=== PATIENT | female | born 1990 | race Caucasian/White ===

== ENCOUNTER 2018-07-11 17:29 | Emergency (ER) | payer BC, SELFPAY ==
[2018-07-11] MEDS ORDERED: Ketorolac Tromethamine 30 MG/ML VIAL ONE (18:40)
[2018-07-11] MEDS ORDERED: diphenhydrAMINE 50 MG/ML VIAL ONE (18:40)
[2018-07-11] MEDS ORDERED: Metoclopramide HCl 10 MG/2 ML VIAL ONE (18:40)
--- NOTE | 2018-07-11 20:28 | CT ---
CT BRAIN WITHOUT CONTRAST: 07/11/18 HISTORY: Migraine headaches. FINDINGS: No evidence of infarct, hemorrhage, midline shift or abnormal extra-axial fluid collections are seen. The ventricular size is normal and the basilar cisterns patent. The bony calvarium is intact. There is mucosa disease in the paranasal sinuses. IMPRESSION: 1. No CT evidence of acute intracranial process. 2. Paranasal sinus disease. POS: [facility]
[2018-07-11 21:58] LABS: Pregnancy Test - Urine (BHCG) Negative (Negative); Pregu Control Background? CLEAR/WHITE (CLR/WHITE); Pregu Control Bar Appear? YES (CONTROL BAR)
[2018-07-11 22:00] LABS: Bilirubin Negative (Negative); Blood, Urine Negative (Negative); Clarity CLEAR (Clear); Glucose, Urine (Dipstick) Negative (Negative); Leukocyte Negative (Negative); Nitrite Negative (Negative); Protein, Urine (Dipstick) Negative (Neg-Trace); Specific Gravity, Urine 1.005 (1.002-1.036); Urobilinogen 0.2 mg/dL (0.2-1.0)
[2018-07-11 22:05] LABS: Specific Gravity 1.005 (1.002-1.036)
== END 2018-07-11 22:33 | disposition home or self-care (01) ==
LOC: ERS 17:29
DX: G43.909 Migraine, unspecified, not intractable, without status migrainosus (principal)
CPT/HCPCS: 51701; 70450; 81003; 81025; 96365; 96375; A4353; J1200; J1885; J2765

== ENCOUNTER 2018-07-12 17:59 | Inpatient (IN) | payer BC, SELFPAY ==
[~2018-07-12 17:59] MED LIST: ISOVUE-370 76%-LOCM 1 ML ONE
[2018-07-12 18:32] LABS: #Basophils 0.1 thou/uL (0.0-0.2); #Lymphocytes 2.4 thou/uL (1.20-3.40); #Monocytes 0.5 thou/uL (0.11-0.59); #Neutrophils 6.4 thou/uL (1.40-6.50); %Basophils 0.8 % (0.0-1.0); %Eosinophils 0.2 % (0.0-10.0); %Lymphocytes 25.5 % (21.0-51.0); %Monocytes 5.1 % (0.0-10.0); %Neutrophils 68.4 % (42.0-75.0); Mean Corpuscular HGB CONC 34.4 g/dL (32.0-36.0); Mean Corpuscular Hemoglobin 31.2 pg (27.0-31.0); Mean Corpuscular Volume 90.7 fL (78.0-98.0); Mean Platelet Volume 6.5 fL (7.4-10.4); Platelet Count 350 thou/uL (130-400); RBC Distribution Width 11.3 % (11.5-14.5); White Blood Cell (WBC) Count 9.4 thou/uL (4.8-10.8)
[2018-07-12 18:54] LABS: Acetaminophen Less than 6.0 mcg/mL (10.0-30.0); Alcohol Less than 10 mg/dL (Less than 10); Salicylate Less than 8.0 mg/dL (15.0-30.0)
[2018-07-12 18:55] LABS: ALT (SGPT) 20 U/L (8-55); AST (SGOT) 17 U/L (5-34); Albumin 4.3 g/dL (3.5-5.0); Alkaline Phosphatase 74 U/L (40-150); Anion Gap 18 mmol/L (10-20); BUN (Urea Nitrogen) 11 mg/dL (7.0-18.7); Bilirubin, Total 0.5 mg/dL (0.2-1.2); Calc. Creatinine Clearance 0 mL/min (70-130); Calcium 9.5 mg/dL (7.8-10.44); Carbon Dioxide 17 mmol/L (22-29); Chloride 105 mmol/L (98-107); Estimated GFR-MDRD Greater than 90; Glucose 84 mg/dL (70-105); Potassium 3.6 mmol/L (3.5-5.1); Protein, Total 7.3 g/dL (6.0-8.3); Sodium 136 mmol/L (136-145)
[2018-07-12 19:17] LABS: CKMB 1.7 ng/mL (0-6.6)
[2018-07-12 21:34] LABS: Amphetamine Not Detected (NotDetected); Barbiturates Screen Not Detected (NotDetected); Benzodiazepine Screen Not Detected (NotDetected); Cocaine Metabolite Screen Not Detected (NotDetected); Medtox Control Line Valid? VALID (VALID); Medtox Reader # READER 1; Methadone Not Detected (NotDetected); Methamphetamine Not Detected (NotDetected); Opiate Screen Not Detected (NotDetected); Oxycodone Screen Not Detected (NotDetected); Phencyclidine (PCP) Not Detected (NotDetected); THC/Cannabinoid Screen Not Detected (NotDetected); Tricyclic Screen Not Detected (NotDetected)
[2018-07-12 22:08] LABS: Troponin I 0.146 ng/mL (< 0.028)
[2018-07-12] MEDS ORDERED: Metoclopramide HCl 10 MG/2 ML VIAL ONE (23:06)
[2018-07-12] MEDS ORDERED: Dicyclomine 20 MG TAB ONE (23:06)
--- NOTE | 2018-07-12 23:46 | CT ---
CT ABDOMEN AND PELVIS WITH IV CONTRAST 07/12/18 HISTORY: Trauma, left lower quadrant pain, possible fall due to seizure with associated nausea and vomiting an d bowel incontinence. FINDINGS: The lung bases are clear. The liver, spleen, pancreas, adrenal glands and kidneys are intact. Gallbla dder and urinary bladder also appear intact. Uterus and ovaries are present. An IUD is noted. No free air or free fluid is seen in the abdomen or pelvis. A retroaortic left renal vein is noted. T here are bilateral tiny nonobstructing renal calculi. No fracture or subluxation seen in the visualiz ed portion of the thoracolumbar spine. No acute osseous abnormalities are identified. IMPRESSION: 1. No evidence of solid organ injury. 2. Nonobstructing bilateral renal calculi. 3. IUD. POS: [facility]
[2018-07-12] MEDS ORDERED: Aspirin 325 MG TAB ONE (23:53)
[2018-07-13 01:40] LABS: Troponin I 0.155 ng/mL (< 0.028)
[2018-07-13 02:46] VITALS: BMI 33.1
[2018-07-13 07:36] LABS: Troponin I 0.237 ng/mL (< 0.028)
[2018-07-13] MEDS ORDERED: ALPRAZolam 0.25 MG TAB PO PRN (10:42)
[2018-07-13] MEDS: Acetaminophen/Codeine 30-300mg Tablet PO PRN (12:51)
[2018-07-13 19:53] LABS: Bilirubin Negative (Negative); Blood, Urine Negative (Negative); Clarity CLOUDY (Clear); Glucose, Urine (Dipstick) Negative (Negative); Leukocyte Trace (Negative); Nitrite Negative (Negative); Protein, Urine (Dipstick) Negative (Neg-Trace); Specific Gravity, Urine 1.014 (1.002-1.036)
[2018-07-13 19:54] LABS: Bacteria/HPF None Seen HPF (None Seen); Hyaline Casts/LPF 0-3 HYALINE CAST LPF (0-3 Hyaline); Pathc Cast-AUWi Flag 0.95 (0-2.49); RBC/HPF 0-3 HPF (0-3)
[2018-07-13 19:56] LABS: Urine Culture Reflex No No
--- NOTE | 2018-07-13 20:21 | CON ---
DATE OF CONSULTATION: 07/13/2018 REASON FOR CONSULTATION: Mildly elevated troponins. HISTORY OF PRESENT ILLNESS: Ms. Vines is a 27-year-old white female, who comes to the hospital for altered mentation. She was brought in by her , who states that for the last 4 or 5 days, she was not acting right, pacing restless, might have had a seizure as when she was found to be thought to be sleepy and when she woke up, she had lost use of her bowels and bladder. She was brought in for all these things and in the workup, troponin was done and it was in the indeterminate range, so Cardiology is being consulted. Ms. Vines states that she has episodes of chest pain on and off. She states that the pain can last anywhere from 5 minutes to 2 to 3 days at a time. She currently denies any chest pain, tightness, or pressure. PAST MEDICAL HISTORY: Migraine headaches. PAST SURGICAL HISTORY: 1. Mass on vocal cords removed. 2. Sinus surgery, long time ago. FAMILY HISTORY: AV malformation in mother. 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 OUTPATIENT MEDICATIONS: 1. Lyrica. 2. Propranolol 120 mg a day. 3. Tylenol with codeine. 4. Tizanidine. 5. Cymbalta. ALLERGIES: AMOXICILLIN. SOCIAL HISTORY: No alcohol, tobacco, or drugs. REVIEW OF SYSTEMS: A 12-point review of systems was done and was found to be negative unless stated in the history present illness . She has several different complaints. She has nausea and vomiting, fatigue, intermittent right arm numbness, headaches from her migraines most likely. PHYSICAL EXAMINATION: VITAL SIGNS: Temperature 98.8, pulse 69, respiratory rate 16, saturation 96% on room air, and blood pressure 118/73. GENERAL: Alert, awake, and oriented x3, in no distress. HEENT: Normocephalic and atraumatic. NECK: Supple. No JVD. LUNGS: Clear to auscultation. CARDIOVASCULAR: S1 and S2. No S3 or S4. No murmurs. ABDOMEN: Soft. Positive bowel sounds. EXTREMITIES: No edema. SKIN: Warm and dry. LABORATORY DATA: Laboratory work was reviewed. CBC is unremarkable. Coags, D-dimer was unremarkable. Chemistries were normal except for carbon dioxide of 17. Troponin was 0.14, 0.15, 0.23 with a CK-MB of 1.7 and . Prolactin was normal. Urine drug screen was unremarkable. CT of the abdomen and pelvis showed no evidence of solid organ injury, nonobstructive bilateral renal calculi, or intrauterine device. ASSESSMENT: 1. Indeterminate troponins. 2. Atypical chest pain. PLAN: 1. Her initial presentation sounds more like a neurological disorder. We will continue to trend troponins. If they go to the positive range, we may recommend a heart catheterization, otherwise we will just get an echocardiogram. They remain in the indeterminate range. We will get an echocardiogram and if this is unremarkable, we will plan on following up as an outpatient. 2. Further recommendations per results of echo and further troponin titration. Job ID: [id number]
[2018-07-13 20:55] LABS: CKMB 1.7 ng/mL (0-6.6)
[2018-07-13] MEDS ORDERED: Communication Order-Pharmacy FS SCH (21:15)
[2018-07-13] MEDS: DULoxetine 60 MG CAP PO SCH (21:44)
[2018-07-13] MEDS: Sodium Chloride 0.9% 1,000 ML IV SCH (21:55)
--- NOTE | 2018-07-13 22:45 | HP ---
CHIEF COMPLAINT: Change in mental status. HISTORY OF PRESENT ILLNESS: The patient is a 27-year-old female with a history of migraine headaches and also history of anxiety and depression, who presented to the hospital with a change in mental status. Upon questioning the patient, the patient states that she has a history of migraines and her normal migraines consist of left temporal pain that last about maybe a day and the patient has been taking propranolol for her headaches. She has been diagnosed with migraines as a child. The patient states that sometimes with her migraine headache she does get right-sided paresthesias. However, the patient feels that for the past 6 days, her headaches have been on her right behind her eye. She describes the pain as sharp pain. She states that nothing that she has been taking has been helping her with the pain. She did come into the ER a few days in a different ER and was treated for migraine cocktail and was discharged home. The patient also states that for the past couple of days she has been feeling very disassociated with herself and her family. The patient stated that her one day commented that she was walking around without any clothes and at that time patient was unaware that she had no clothes on. The patient feels that her behavior was a little bit bizarre. She denies any chills, fevers, pain, or stiffness. The patient states that she just feels disassociated with her and feels very strange within her. The patient also stated that about maybe a month ago, she presented to the another ER with complaints of pleuritic pain at this time. She was told that she was given some naproxen and was told that this was probably inflammatory. At that time, her EKG was normal. PAST MEDICAL HISTORY: She has a history of migraines. She has a history of anxiety and depression. PAST SURGICAL HISTORY: She does have some sinus surgery when she was a child. FAMILY HISTORY: Mother has a history of mental disease, which has never been treated and AVMs. Father has a history of heart disease. However, she is unable to tell me what type and how old that he was diagnosed with heart disease. SOCIAL HISTORY: She denies any alcohol use. She does smoke. Denies any drug use and lives at home with her family and she is a full code. ALLERGIES: SHE IS ALLERGIC TO AMOXICILLIN. CURRENT MEDICATIONS: She is on, 1. Lyrica 225 mg daily. 2. Propranolol one p.o. daily. 3. Tylenol 3 with codeine 1 p.o. q.4 hours p.r.n. 4. Tizanidine one q.8 hours p.r.n. 5. Cymbalta 60 mg one p.o. daily. REVIEW OF SYSTEMS: All negative except for the ones mentioned above in the HPI. PHYSICAL EXAMINATION: VITAL SIGNS: Temperature 98.8, heart rate 61, respiratory rate 16, oxygen saturation 100% on room air, blood pressure 121/81. GENERAL: She is awake, alert, and oriented x3. Does not appear in any distress. CV: S1, S2 present. No murmurs, rubs, or gallops. HEENT: Normocephalic, atraumatic. No lymphadenopathy noted. LUNGS: Clear to auscultation. No rhonchi or wheezes noted. ABDOMEN: Soft and nontender. Bowel sounds are present x2. NEUROVASCULAR: No focal deficits noted. SKIN: No cuts, lesions, or bruises noted. PSYCHIATRIC: The patient has a very flat affect. She is awake, alert, and oriented x3. Appears a little teary at times. When I entered the room, the patient did have the mother and aunt; however, she asked her mother to leave the room before I started asking her questions. She stated that she did not want her mother knowing what was going on with her. LABORATORY DATA: As of the following; sodium of 136, potassium of 3.6, BUN of 11, creatinine of 0.72. LFTs are normal. Troponins x3 were mildly elevated. EKG, no acute abnormalities. Prolactin was 7.83. TSH is pending. D-dimer was less than 0.27. Toxicology, she was negative for any drug use or alcohol use. She also had a CT of abdomen and pelvis which indicated no evidence of solid organ injury. She has an IUD, nonobstructing bilateral renal calculi. She also had a pelvic exam done in the ER, which some of the results of her cervix, there was negative for Trichomonas, Gardnerella, or Cece. ASSESSMENT AND PLAN: The patient is a 27-year-old female who presents to the hospital with these vague symptoms and also change of mental status. 1. Encephalopathy could be secondary to metabolic versus worsening migraine headaches versus psychiatric. Upon getting history from the patient, it seemed more psychiatric given her nature. However, I will get Neurology to evaluate this patient. I am holding off on the CAT scan since I want Neurology to evaluate her and give the recommendation. I will check a TSH on this lady. Her UDS was negative. Also, check a urine to rule out any infectious etiology. 2. Elevated troponins. EKG was negative. I will consult Cardiology. She is pretty young to have elevated troponins. Her D-dimer was negative. 3. History of migraines. I will put in a p.r.n. migraine cocktail. 4. Anxiety, depression. We will continue her home medications. 5. Deep venous thrombosis prophylaxis. We will put the patient on SCDs. Job ID: [id number]
--- NOTE | 2018-07-13 23:44 | CON ---
DATE OF CONSULTATION: 07/13/2018 CONSULTING PHYSICIAN: Hospitalist Services. IMPRESSION: 1. Chronic migraines. 2. Possible nocturnal seizure. PLAN: 1. Outpatient MRI of the brain and EEG. 2. Office followup for management of her migraines. HISTORY OF PRESENT ILLNESS: Ms. Vines is a 27-year-old white female with a long history of migraine headaches. She started having a migraine 6 days ago. It wax and wane in severity and she finally gave up and came to the hospital. She was treated with the migraine protocol and had complete resolution of the headache. She went home and was sleeping and when she awoke, found that she had bit her tongue and wet with bed, her muscles were a bit sore. She had a CT scan of the brain done, which was unremarkable. All of her lab work was in normal range. She has never had a seizure before. Her migraines occur about once a month. She usually can treat them with Excedrin or Maxalt. PAST HISTORY: Otherwise negative. ALLERGIES: AMOXICILLIN. MEDICATIONS: None. SOCIAL HISTORY: No illicit drug use or tobacco use. FAMILY HISTORY: Noncontributory. REVIEW OF SYSTEMS: Ten-systems review of systems otherwise negative. PHYSICAL EXAMINATION: GENERAL: She is a well-nourished young woman, in no acute distress. VITAL SIGNS: Stable. She is afebrile. HEENT: Pupils equal and reactive. Conjunctivae clear. Oropharynx clear. There is some minor damage to the tip of her tongue. NECK: Supple. EXTREMITIES: No cyanosis, clubbing, or edema. NEUROLOGIC: She is alert and appropriate. Her speech is fluent and clear. Exam is nonfocal. DIAGNOSTIC DATA: Imaging and lab work were reviewed. SUMMARY: This is a young woman with a possible first nocturnal seizure along with migraines. She seems clinically stable to be worked up as an outpatient. I would not start her on anticonvulsants at this point in time. Job ID: [id number]
[2018-07-14 05:39] LABS: #Basophils 0.1 thou/uL (0.0-0.2); #Eosinphils 0.1 thou/uL (0.0-0.7); #Lymphocytes 2.2 thou/uL (1.20-3.40); #Monocytes 0.7 thou/uL (0.11-0.59); #Neutrophils 5.7 thou/uL (1.40-6.50); %Basophils 0.7 % (0.0-1.0); %Lymphocytes 25.3 % (21.0-51.0); %Monocytes 7.6 % (0.0-10.0); %Neutrophils 65.3 % (42.0-75.0); Mean Corpuscular HGB CONC 34.4 g/dL (32.0-36.0); Mean Corpuscular Hemoglobin 31.5 pg (27.0-31.0); Mean Corpuscular Volume 91.7 fL (78.0-98.0); Mean Platelet Volume 7.1 fL (7.4-10.4); Platelet Count 316 thou/uL (130-400); RBC Distribution Width 11.3 % (11.5-14.5); Red Blood Cell (RBC) Count 4.45 mill/uL (4.20-5.40); White Blood Cell (WBC) Count 8.8 thou/uL (4.8-10.8)
[2018-07-14 05:49] LABS: Anion Gap 12 mmol/L (10-20); BUN (Urea Nitrogen) 9 mg/dL (7.0-18.7); Calc. Creatinine Clearance 166 mL/min (70-130); Calcium 8.9 mg/dL (7.8-10.44); Carbon Dioxide 22 mmol/L (22-29); Chloride 106 mmol/L (98-107); Estimated GFR-MDRD Greater than 90; Glucose 87 mg/dL (70-105); Potassium 3.7 mmol/L (3.5-5.1); Sodium 136 mmol/L (136-145)
[2018-07-14] MEDS: Pregabalin 75 MG CAP PO SCH (06:09)
[2018-07-14] MEDS: DULoxetine 60 MG CAP PO SCH ×2 (06:10→20:28)
[2018-07-14] MEDS: Acetaminophen/Codeine 30-300mg Tablet PO PRN ×2 (06:10→20:29)
[2018-07-14] MEDS: Aspirin 325 mg Enteric Coated Tablet PO SCH (09:57)
[2018-07-14] MEDS: Sodium Chloride 0.9% 1,000 ML IV SCH ×2 (10:02→20:30)
[2018-07-14] MEDS ORDERED: Iopamidol 370 76% 100 ML VIAL ONE (10:27)
[2018-07-14 11:54] LABS: Hemoglobin A1c 4.3 % (4.0-6.0)
[2018-07-14 12:12] LABS: Cardiac Risk 5.1 (Less than 4.5)
[2018-07-14 12:27] LABS: Troponin I 0.553 ng/mL (< 0.028)
[2018-07-14] MEDS ORDERED: Fentanyl 100 MCG/2 ML VIAL ONE (13:11)
[2018-07-14] MEDS ORDERED: Midazolam HCl 2 mg/2 ml Vial ONE (13:11)
[2018-07-14] MEDS ORDERED: Nitroglycerin 4.9 GM Bottle ONE (13:24)
[2018-07-14] MEDS ORDERED: Lorazepam 2 MG/ML VIAL SLOW IVP SCH (15:15)
[2018-07-14 15:49] LABS: Troponin I 0.597 ng/mL (< 0.028)
--- NOTE | 2018-07-14 16:30 | PDOC.PN ---
- Subjective Encounter Start Date: 07/14/18 Encounter Start Time: 10:30 Subjective: pt up in bed no complains - Objective Resuscitation Status - Order Detail: 07/13/18 10:41 Resuscitation Status Routine Resuscitation Status: FULL: Full Resuscitation Vital Signs & Weight: Vital Signs (12 hours) Temp Pulse Resp BP Pulse Ox 07/14/18 16:00 98 F 60 16 138/79 100 07/14/18 11:51 97.8 F 61 16 128/79 100 07/14/18 10:00 99 07/14/18 07:45 97.8 F 83 16 124/63 99 Weight Weight 181 lb 4.8 oz I&O: 07/13/18 07/14/18 07/15/18 06:59 06:59 06:59 Intake Total 240 1240 Balance 240 1240 Result Diagrams: 07/14/18 04:54 07/14/18 04:54 Phys Exam - Physical Examination Respiratory: no wheezing, no rales, no rhonchi, wheezing present, clear to auscultation bilateral Cardiovascular: RRR, no significant murmur, no rub, gallop, irregular Gastrointestinal: soft, non-tender, no distention, positive bowel sounds Musculoskeletal: no edema, pulses present, edema present Dx/Plan (1) Encephalopathy Code(s): G93.40 - ENCEPHALOPATHY, UNSPECIFIED Status: Acute (2) Elevated troponin Code(s): R74.8 - ABNORMAL LEVELS OF OTHER SERUM ENZYMES Status: Acute (3) Migraine Code(s): G43.909 - MIGRAINE, UNSP, NOT INTRACTABLE, WITHOUT STATUS MIGRAINOSUS Status: Acute - Plan pt's ddimer was negative, pt's trops continue to worsen -: cardiology consulted, npo. echo ordered. no ekg changes -: pt currently has no headache. will get MRI brain. if negative may consider -: getting Mental health to see pt. * . Review of Systems - Review of Systems Respiratory: negative: Cough, Dry, Shortness of Breath, Hemoptysis, SOB with Excertion, Pleuritic Pain, Sputum, Wheezing Cardiovascular: negative: chest pain, palpitations, orthopnea, paroxysmal nocturnal dyspnea, edema, light headedness, other Gastrointestinal: negative: Nausea, Vomiting, Abdominal Pain, Diarrhea, Constipation, Melena, Hematochezia, Other - Medications/Allergies Allergies/Adverse Reactions: Allergies Allergy/AdvReac Type Severity Reaction Status Date / Time amoxicillin Allergy Verified 07/13/18 02:32 Medications: Current Medications Acetaminophen/Codeine Phosphate (Tylenol #3) 1 tab PO Q4H PRN PRN Reason: Moderate Pain (4-6) Last Admin: 07/14/18 06:10 Dose: 1 tab Alprazolam (Xanax) 0.25 mg PO HS PRN PRN Reason: Anxiety Aspirin (Ecotrin) 325 mg PO DAILY [facility] Last Admin: 07/14/18 09:57 Dose: 325 mg Atorvastatin Calcium (Lipitor) 40 mg PO HS [facility]ERT Duloxetine HCl (Cymbalta) 60 mg PO BID [facility] Last Admin: 07/14/18 06:10 Dose: 60 mg Sodium Chloride (Normal Saline 0.9%) 1,000 mls @ 100 mls/hr IV .Q10H [facility] Stop: 07/14/18 19:15 Last Admin: 07/14/18 10:02 Dose: 1,000 mls Lorazepam (Ativan) 1 mg SLOW IVP WILLCALL [facility] Stop: 07/14/18 20:00 Miscellaneous Information (Communication Order-Pharmacy) 0 each FS ONE [facility] Stop: 07/14/18 21:16 Pregabalin (Lyrica) 225 mg PO DAILY [facility] Last Admin: 07/14/18 06:09 Dose: 225 mg Trazodone HCl (Desyrel) 100 mg PO HS PRN PRN Reason: Insomnia
--- NOTE | 2018-07-14 18:39 | MRI ---
MRI BRAIN NONCONTRAST: 07/14/18 HISTORY: 27-year-old female with altered mental status and headache. FINDINGS: The ventricles are normal in size and configuration. There is no major intraaxial signal abnormality , restricted diffusion, midline shift or any other mass effect, recent intraaxial hemorrhage, or extr aaxial fluid collection. There is severe partial opacification of the right maxillary sinus. There is moderate partial opacification of right ethmoid air cells. There is a small amount of fluid in the l eft sphenoid air cell. There is fluid in the nasopharyngeal airway. IMPRESSION: 1. The brain is normal. 2. Mucosal disease of the paranasal sinuses. jn[] POS: [facility]
[2018-07-14 18:45] LABS: Troponin I 0.635 ng/mL (< 0.028)
[2018-07-14] MEDS ORDERED: Amlodipine 5 MG TAB PO SCH (19:00)
[2018-07-14] MEDS ORDERED: Atorvastatin Calcium 40 MG TAB PO SCH (21:00)
[2018-07-14 21:10] LABS: Chlamydia by PCR Not Detected (NotDetected); GC by PCR Not Detected (NotDetected)
[2018-07-15] MEDS ORDERED: Amlodipine 5 MG TAB PO SCH (09:00)
[2018-07-15] MEDS: Pregabalin 75 MG CAP PO SCH (09:20)
[2018-07-15] MEDS: DULoxetine 60 MG CAP PO SCH (09:24)
[2018-07-15] MEDS: Aspirin 325 mg Enteric Coated Tablet PO SCH (09:24)
--- NOTE | 2018-07-15 11:58 | EKG ---
Test Reason : Blood Pressure : / mmHG Vent. Rate : 079 BPM Atrial Rate : 079 BPM P-R Int : 146 ms QRS Dur : 084 ms QT Int : 386 ms P-R-T Axes : 041 053 010 degrees QTc Int : 442 ms Normal sinus rhythm Normal ECG Confirmed by MAGDA TRIANA M.D. ([id number]), editor [employer] [facility] ([id number] on 07/15/2018 11:58:09 AM Referred By: Confirmed By:MAGDA TRIANA M.D.
[2018-07-15 12:17] VITALS: BP 118/75; TEMP 98.3
--- NOTE | 2018-07-15 16:36 | PDOC.EVN ---
Event Note - Event Note Event Note: pt called in rx for clindamycin for cervical cx. Pt allergic to amoxicillin. Initially called in Norvasc for possible coronary spasm however pt's blood pressure was low. spoke with pt to hold off on Norvasc for now. she is suppose to follow up with her primary and neurology.
--- NOTE | 2018-07-16 03:34 | DIS ---
DATE OF ADMISSION: 07/14/2018 DATE OF DISCHARGE: 07/15/2018 DISCHARGE DIAGNOSES: As of the following, 1. Encephalopathy. 2. Elevated troponins. 3. Migraine headaches. HOSPITAL COURSE: The patient is a 27-year-old female, who initially presented to the hospital with complaints of migraine headaches, which was different from her baseline headaches. Please refer to the H and P for further details. The patient also was found to have some urinary incontinence and was having some bizarre behavior. However, at this time, she was not suicidal or homicidal. The patient also was found to have mildly elevated troponins. At this time, her troponins continued to worsen and Cardiology was consulted. She had no EKG changes. The patient underwent an echocardiogram which indicated an EF of 50% to 55%. She had no chest pain. However, the patient's troponin continued to worsen at this time. She underwent a cardiac catheterization, which did not indicate any blockages. The patient also was seen by Neurology, recommended outpatient followup for possible seizures. MRI brain did not indicate any abnormalities, just indicated some paranasal sinuses. The patient, at this time, did not want to wait around for mental health assessment. She wanted to follow up as an outpatient for that. We will provide her information on followup with Mental Health. PHYSICAL EXAMINATION: VITAL SIGNS: Temperature 98.3, pulse 82, respiratory rate 20, oxygen saturation 100% on room air, and blood pressure 118/75. GENERAL: She is awake, alert, and oriented x3. Does not appear in distress. CV: S1 and S2 present. No murmurs, rubs, or gallops. ABDOMEN: Soft and nontender. Bowel sounds are present x2. EXTREMITIES: No edema. Pedal pulses are present x2. Again, the patient will be discharged home. She will follow up with her primary care doctor. She has been okayed by Cardiology to be discharged. She will follow up also with (Mental Health) as an outpatient. Job ID: [id number]
--- NOTE | 2018-07-17 22:33 | EKG ---
Test Reason : Blood Pressure : / mmHG Vent. Rate : 050 BPM Atrial Rate : 050 BPM P-R Int : 160 ms QRS Dur : 088 ms QT Int : 450 ms P-R-T Axes : 041 076 034 degrees QTc Int : 410 ms Sinus bradycardia Otherwise normal ECG When compared with ECG of 12-JUL-2018 18:16, (Unconfirmed) Vent. rate has decreased BY 29 BPM Nonspecific T wave abnormality no longer evident in Lateral leads Confirmed by Vince JAMIL ([id number]) on 07/17/2018 10:32:32 PM Referred By: LEONCIO Confirmed By:Vince JAMIL
== END 2018-07-15 14:49 | disposition home or self-care (01) | DRG 71 ==
LOC: ERS 17:59 → 2SE 07-13 00:45 → OBSVTOIN 07-14 08:59
PROVIDERS: ADMIT Family Medicine; ATTEND Family Medicine
DX: G93.40 Encephalopathy, unspecified (principal); G40.89 Other seizures; F41.9 Anxiety disorder, unspecified; F32.9 Major depressive disorder, single episode, unspecified; G43.909 Migraine, unspecified, not intractable, without status migrainosus
CPT/HCPCS: 36415; 36416; 70551; 74177; 80048; 80053; 80061; 80306; 80307; 81001; 82550; 82553; 83036; 83605; 84146; 84439; 84443; 84484; 85025; 85379; 87070; 87077; 87480; 87491; 87510; 87591; 87660; 93005; 93010; 93306; 93458; 94760; 96365; 99152; C1769; J1644; J2250; J2765; J3010; Q9967

== ENCOUNTER 2018-12-31 12:03 | Emergency (ER) | payer BC, OTHER ==
[2018-12-31 13:41] LABS: Bilirubin Negative (Negative); Blood, Urine Negative (Negative); Clarity Clear (Clear); Glucose, Urine (Dipstick) Negative (Negative); Leukocyte Negative (Negative); Nitrite Negative (Negative); Protein, Urine (Dipstick) Negative (Neg-Trace); Urobilinogen 0.2 mg/dL (Less than 2)
[2018-12-31 13:42] LABS: Pregnancy Test - Urine (BHCG) Negative (Negative); Pregu Control Background? CLEAR/WHITE (CLR/WHITE); Pregu Control Bar Appear? YES (CONTROL BAR); Specific Gravity 1.004 (1.002-1.036)
[2018-12-31] MEDS ORDERED: Metoclopramide HCl 10 MG/2 ML VIAL ONE (13:51)
[2018-12-31] MEDS ORDERED: diphenhydrAMINE 50 MG/ML VIAL ONE (13:51)
[2018-12-31] MEDS ORDERED: Ketorolac Tromethamine 30 MG/ML VIAL ONE (13:51)
== END 2018-12-31 16:26 | disposition home or self-care (01) ==
LOC: SCSER 12:03
DX: G43.909 Migraine, unspecified, not intractable, without status migrainosus (principal); Z79.899 Other long term (current) drug therapy
CPT/HCPCS: 36416; 81003; 81025; 96365; 96366; 96375; J1200; J1885; J2765

== ENCOUNTER 2019-11-08 08:50 | Emergency (ER) | payer BC, OTHER ==
[2019-11-08] MEDS ORDERED: Ketorolac Tromethamine 30 MG/ML VIAL ONE (09:18)
[2019-11-08] MEDS ORDERED: Ondansetron PF 4 MG/2 ML Vial ONE (09:42)
[2019-11-08 09:50] LABS: #Eosinphils 0.2 thou/uL (0.0-0.7); #Lymphocytes 2.4 thou/uL (1.20-3.40); #Monocytes 0.6 thou/uL (0.11-0.59); #Neutrophils 5.5 thou/uL (1.40-6.50); %Basophils 0.4 % (0.0-1.0); %Eosinophils 2.4 % (0.0-10.0); %Lymphocytes 27.8 % (21.0-51.0); %Monocytes 6.9 % (0.0-10.0); %Neutrophils 62.6 % (42.0-75.0); Hemoglobin 14.6 g/dL (12.0-16.0); Mean Corpuscular HGB CONC 34.3 g/dL (32.0-36.0); Mean Corpuscular Hemoglobin 31.2 pg (27.0-31.0); Mean Corpuscular Volume 91.1 fL (78.0-98.0); Mean Platelet Volume 7.1 fL (7.4-10.4); Platelet Count 316 thou/uL (130-400); Red Blood Cell (RBC) Count 4.67 mill/uL (4.20-5.40); White Blood Cell (WBC) Count 8.8 thou/uL (4.8-10.8)
[2019-11-08 09:55] LABS: Bilirubin Negative (Negative); Blood, Urine Negative (Negative); Clarity Clear (Clear); Glucose, Urine (Dipstick) Normal (Negative); Ketone, Urine Negative (Negative); Leukocyte Negative Leu/uL (Negative); Nitrite Negative (Negative); Protein, Urine (Dipstick) Negative (Neg-Trace); Specific Gravity, Urine 1.002 (1.002-1.036); Urobilinogen Normal mg/dL (Less than 2)
[2019-11-08 09:56] LABS: Pregnancy Test - Urine (BHCG) Negative (Negative); Pregu Control Background? CLEAR/WHITE (CLR/WHITE); Pregu Control Bar Appear? YES (CONTROL BAR); Specific Gravity 1.002 (1.002-1.036)
[2019-11-08 10:16] LABS: ALT (SGPT) 15 U/L (8-55); AST (SGOT) 18 U/L (5-34); Alkaline Phosphatase 94 U/L (40-110); Anion Gap 16 mmol/L (10-20); BUN (Urea Nitrogen) 8 mg/dL (7.0-18.7); Bilirubin, Total 0.3 mg/dL (0.2-1.2); Calc. Creatinine Clearance 0 mL/min (70-130); Calcium 8.5 mg/dL (7.8-10.44); Carbon Dioxide 18 mmol/L (22-29); Chloride 106 mmol/L (98-107); Estimated GFR-MDRD Greater than 90; Glucose 76 mg/dL (70-105); Lipase 13 U/L (8-78); Potassium 4.3 mmol/L (3.5-5.1); Sodium 136 mmol/L (136-145)
--- NOTE | 2019-11-08 10:23 | CT ---
CT abdomen and pelvis noncontrast HISTORY: Right flank pain. Kidney stones. COMPARISON: 07/12/2018. FINDINGS: The right renal collecting system and ureter are mildly distended to the level of a 0.4 cm calculus at the right ureterovesicular junction. The left renal collecting system and ureter are decompressed. There is mild medullary calcification involving each kidney. There are 6 right renal calculi measurin g up to 0.6 cm greatest diameter. At least 3 left renal calculi measuring up to 0.4 cm. Mild atelectasis is present at the lung bases. Lack of contrast limits evaluation of the soft tissues . Retroaortic left renal vein is noted. Intrauterine contraceptive device in place. No evidence of bowel obstruction or inflammation. IMPRESSION : Partial obstruction at a the 4 mm right UVJ calcification. Additional bilateral renal calculi.
== END 2019-11-08 11:36 | disposition home or self-care (01) ==
LOC: ERS 08:50
DX: N20.2 Calculus of kidney with calculus of ureter (principal); G43.909 Migraine, unspecified, not intractable, without status migrainosus; F17.210 Nicotine dependence, cigarettes, uncomplicated; Z79.899 Other long term (current) drug therapy
CPT/HCPCS: 36415; 74176; 80053; 81003; 81025; 83690; 85025; 96361; 96374; 96375; J1885; J2405

== ENCOUNTER 2020-02-25 14:32 | Emergency (ER) | payer BC ==
[~2020-02-25 14:32] MED LIST changes: -ISOVUE-370 76%-LOCM 1 ML ONE; +Iopamidol-370 76% 500 ML 1 ML ONE
[2020-02-25 17:15] LABS: #Basophils 0.1 thou/uL (0.0-0.2); #Eosinphils 0.4 thou/uL (0.0-0.7); #Lymphocytes 3.8 thou/uL (1.20-3.40); #Monocytes 0.5 thou/uL (0.11-0.59); #Neutrophils 4.9 thou/uL (1.40-6.50); %Basophils 0.9 % (0.0-1.0); %Eosinophils 3.6 % (0.0-10.0); %Lymphocytes 39.2 % (21.0-51.0); %Monocytes 5.5 % (0.0-10.0); %Neutrophils 50.7 % (42.0-75.0); Hemoglobin 13.1 g/dL (12.0-16.0); Mean Corpuscular HGB CONC 32.9 g/dL (32.0-36.0); Mean Corpuscular Hemoglobin 30.1 pg (27.0-31.0); Mean Corpuscular Volume 91.3 fL (78.0-98.0); Mean Platelet Volume 6.8 fL (7.4-10.4); Platelet Count 357 thou/uL (130-400); RBC Distribution Width 11.8 % (11.5-14.5); Red Blood Cell (RBC) Count 4.37 mill/uL (4.20-5.40); White Blood Cell (WBC) Count 9.7 thou/uL (4.8-10.8)
--- NOTE | 2020-02-25 17:24 | RAD ---
Portable frontal chest radiograph: 02/25/2020 COMPARISON: 02/14/2020 HISTORY: Fever FINDINGS: Lungs are clear. Heart and mediastinal contours appear within normal limits. IMPRESSION: No acute findings.
[2020-02-25 17:29] LABS: BHCG - Serum Negative (NEGATIVE); Pregs Control Bar Appear? YES (CONTROL BAR)
[2020-02-25 17:30] LABS: Pregs Control Background? CLEAR/WHITE (CLR/WHITE)
[2020-02-25 17:32] LABS: ALT (SGPT) 13 U/L (8-55); AST (SGOT) 14 U/L (5-34); Alkaline Phosphatase 84 U/L (40-110); Anion Gap 13 mmol/L (10-20); BUN (Urea Nitrogen) 8 mg/dL (7.0-18.7); Bilirubin, Total 0.2 mg/dL (0.2-1.2); Calc. Creatinine Clearance 0 mL/min (70-130); Calcium 9.2 mg/dL (7.8-10.44); Carbon Dioxide 26 mmol/L (22-29); Chloride 104 mmol/L (98-107); Estimated GFR-MDRD 84; Globulin 2.8 g/dL (2.4-3.5); Glucose 93 mg/dL (70-105); Lipase 15 U/L (8-78); Potassium 3.9 mmol/L (3.5-5.1); Protein, Total 6.8 g/dL (6.0-8.3); Sodium 139 mmol/L (136-145)
--- NOTE | 2020-02-25 18:17 | CT ---
CT of the abdomen and pelvis: 02/25/2020 COMPARISON: 06/10/2010 and 11/08/2019 HISTORY: Fever, left lower quadrant abdominal pain with nausea and diarrhea TECHNIQUE: Axial CT imaging at 5 mm intervals from lung bases through pubic symphysis with IV contras t. Coronal and sagittal reformatted imaging obtained. FINDINGS: The imaged lung bases are unremarkable. No free intraperitoneal air or fluid is seen. There is an IUD within the uterus. The liver, gallbladder, and spleen demonstrate no acute findings. The pancreas and adrenal glands omar ear grossly unremarkable. There is a small fat-containing umbilical hernia. There is an intrarenal calculus on the left within the lower pole measuring 3-4 mm. Multiple punctate nonobstructing renal calculi are noted on the right and there is a punctate nonobstructing stone within the upper pole on the left. No evidence for hydronephrosis is seen on either side. Limited assessment of the bowel without oral contrast media demonstrates no evidence for inflammatory change or obstruction. The appendix is unremarkable. There is a retroaortic left renal vein. No abdominal or pelvic lymphadenopathy. No acute osseous abno rmality. IMPRESSION: Incidental findings as detailed above. No acute findings.
[2020-02-25 18:54] LABS: Bilirubin Negative (Negative); Blood, Urine Negative (Negative); Clarity Clear (Clear); Glucose, Urine (Dipstick) Normal (Negative); Ketone, Urine Negative (Negative); Leukocyte Negative Leu/uL (Negative); Nitrite Negative (Negative); Protein, Urine (Dipstick) Negative (Neg-Trace); Specific Gravity, Urine 1.009 (1.002-1.036); Urobilinogen Normal mg/dL (Less than 2); pH, Urine 6.5 (5.0-9.0)
== END 2020-02-25 19:00 | disposition home or self-care (01) ==
LOC: ERS 14:32
DX: R10.12 Left upper quadrant pain (principal); R10.32 Left lower quadrant pain; R50.9 Fever, unspecified; G43.909 Migraine, unspecified, not intractable, without status migrainosus; F17.210 Nicotine dependence, cigarettes, uncomplicated
CPT/HCPCS: 36415; 71045; 74177; 80053; 81003; 83605; 83690; 84703; 85025; Q9967

== ENCOUNTER 2021-02-26 10:27 | Emergency (ER) | payer BC ==
[2021-02-26] MEDS ORDERED: Acetaminophen 500 MG TAB ONE (10:59)
[2021-02-26] MEDS ORDERED: Magnesium 2 GM/50 ML BAG (IN WATER) ONE (10:59)
[2021-02-26] MEDS ORDERED: Lidocaine Viscous Sol 2% 15 ml UD Cup ONE ×2 (10:59→11:03)
[2021-02-26] MEDS ORDERED: Metoclopramide HCl 10 MG/2 ML VIAL ONE (10:59)
[2021-02-26] MEDS ORDERED: Mag-Al 1200 mg/1200 mg/30 ML UDCUP ONE (10:59)
[2021-02-26] MEDS ORDERED: Ketorolac Tromethamine 30 MG/ML VIAL ONE (10:59)
[2021-02-26] MEDS ORDERED: diphenhydrAMINE 50 MG/ML VIAL ONE (10:59)
== END 2021-02-26 12:53 | disposition home or self-care (01) ==
LOC: ERS 10:27
DX: G43.909 Migraine, unspecified, not intractable, without status migrainosus (principal); F17.210 Nicotine dependence, cigarettes, uncomplicated; Z79.899 Other long term (current) drug therapy
CPT/HCPCS: 93005; 96365; 96367; 96375; J1200; J1885; J2765; J3475

== ENCOUNTER 2021-02-28 09:43 | Emergency (ER) | payer BC ==
[2021-02-28] MEDS ORDERED: Iopamidol-370 76% 500 ML 1 ML ONE (10:02)
[2021-02-28 10:42] LABS: #Lymphocytes 2.9 thou/uL (1.20-3.40); #Monocytes 0.6 thou/uL (0.11-0.59); #Neutrophils 9.3 thou/uL (1.40-6.50); %Basophils 0.4 % (0.0-1.0); %Eosinophils 0.2 % (0.0-10.0); %Lymphocytes 22.5 % (21.0-51.0); %Monocytes 4.3 % (0.0-10.0); %Neutrophils 72.6 % (42.0-75.0); Hemoglobin 16.1 g/dL (12.0-16.0); Mean Corpuscular HGB CONC 34.4 g/dL (32.0-36.0); Mean Corpuscular Hemoglobin 31.2 pg (27.0-31.0); Mean Corpuscular Volume 90.9 fL (78.0-98.0); Mean Platelet Volume 6.6 fL (7.4-10.4); Platelet Count 452 thou/uL (130-400); RBC Distribution Width 12.2 % (11.5-14.5); Red Blood Cell (RBC) Count 5.16 mill/uL (4.20-5.40); White Blood Cell (WBC) Count 12.8 thou/uL (4.8-10.8)
[2021-02-28 10:57] LABS: ALT (SGPT) 23 U/L (8-55); AST (SGOT) 16 U/L (5-34); Albumin 4.4 g/dL (3.5-5.0); Alkaline Phosphatase 102 U/L (40-110); Anion Gap 13 mmol/L (10-20); BUN (Urea Nitrogen) 11 mg/dL (7.0-18.7); Bilirubin, Total 0.6 mg/dL (0.2-1.2); Calc. Creatinine Clearance 0 mL/min (70-130); Carbon Dioxide 22 mmol/L (22-29); Chloride 108 mmol/L (98-107); Globulin 3.7 g/dL (2.4-3.5); Glucose 104 mg/dL (70-105); Lipase 12 U/L (8-78); Potassium 4.1 mmol/L (3.5-5.1); Protein, Total 8.1 g/dL (6.0-8.3); Sodium 139 mmol/L (136-145)
[2021-02-28 11:37] LABS: INR-International Normal Ratio 0.9; PTT 27.6 sec (22.9-36.1); Prothrombin Time 12.6 sec (12.0-14.7)
[2021-02-28 12:58] LABS: Bilirubin Negative (Negative); Blood, Urine Negative (Negative); Clarity Clear (Clear); Glucose, Urine (Dipstick) Normal (Negative); Ketone, Urine 40 mg/dL (Negative); Leukocyte Negative Leu/uL (Negative); Nitrite Negative (Negative); Protein, Urine (Dipstick) 20 mg/dL (Neg-Trace); Urobilinogen Normal mg/dL (Less than 2)
[2021-02-28 13:02] LABS: Pregnancy Test - Urine (BHCG) Negative (Negative); Pregu Control Background? CLEAR/WHITE (CLR/WHITE); Pregu Control Bar Appear? YES (CONTROL BAR); Specific Gravity Greater than 1.060 (1.002-1.036); Specific Gravity, Urine Greater than 1.060 (1.002-1.036)
[2021-02-28] MEDS ORDERED: diphenhydrAMINE 50 MG/ML VIAL ONE (13:43)
[2021-02-28] MEDS ORDERED: methylPREDNISolone Sod Succ/PF 125 MG/2 ML VIAL ONE (13:43)
[2021-02-28] MEDS ORDERED: Ketorolac Tromethamine 30 MG/ML VIAL ONE (13:43)
[2021-02-28] MEDS ORDERED: Metoclopramide HCl 10 MG/2 ML VIAL ONE (13:43)
== END 2021-02-28 14:55 | disposition home or self-care (01) ==
LOC: ERS 09:43
DX: G43.909 Migraine, unspecified, not intractable, without status migrainosus (principal); R10.31 Right lower quadrant pain; R10.11 Right upper quadrant pain; D72.829 Elevated white blood cell count, unspecified; F17.210 Nicotine dependence, cigarettes, uncomplicated; Z79.899 Other long term (current) drug therapy
CPT/HCPCS: 36415; 74177; 80053; 81003; 81025; 83605; 83690; 85025; 85610; 85730; 87040; 87077; 87086; 94760; 96365; 96375; J1200; J1885; J2765; J2930; Q9967

== ENCOUNTER 2021-03-17 08:30 | Emergency (ER) | payer BC ==
[2021-03-17] MEDS ORDERED: diphenhydrAMINE 50 MG/ML VIAL ONE (09:01)
[2021-03-17] MEDS ORDERED: Metoclopramide HCl 10 MG/2 ML VIAL ONE (09:01)
[2021-03-17] MEDS ORDERED: Ketorolac Tromethamine 30 MG/ML VIAL ONE (09:01)
[2021-03-17] MEDS ORDERED: methylPREDNISolone Sod Succ/PF 125 MG/2 ML VIAL ONE (09:01)
[2021-03-17 09:28] LABS: #Basophils 0.1 thou/uL (0.0-0.2); #Lymphocytes 2.3 thou/uL (1.20-3.40); #Monocytes 0.5 thou/uL (0.11-0.59); #Neutrophils 10.8 thou/uL (1.40-6.50); %Basophils 0.6 % (0.0-1.0); %Eosinophils 0.1 % (0.0-10.0); %Lymphocytes 16.9 % (21.0-51.0); %Monocytes 3.9 % (0.0-10.0); %Neutrophils 78.5 % (42.0-75.0); Hemoglobin 14.4 g/dL (12.0-16.0); Mean Corpuscular HGB CONC 33.5 g/dL (32.0-36.0); Mean Corpuscular Hemoglobin 30.1 pg (27.0-31.0); Mean Platelet Volume 6.5 fL (7.4-10.4); Platelet Count 456 thou/uL (130-400); RBC Distribution Width 12.1 % (11.5-14.5); White Blood Cell (WBC) Count 13.7 thou/uL (4.8-10.8)
[2021-03-17 09:52] LABS: ALT (SGPT) 22 U/L (8-55); AST (SGOT) 15 U/L (5-34); Albumin 4.4 g/dL (3.5-5.0); Alkaline Phosphatase 112 U/L (40-110); Anion Gap 13 mmol/L (10-20); BUN (Urea Nitrogen) 15 mg/dL (7.0-18.7); Bilirubin, Total 0.4 mg/dL (0.2-1.2); Calc. Creatinine Clearance 0 mL/min (70-130); Calcium 9.8 mg/dL (7.8-10.44); Carbon Dioxide 24 mmol/L (22-29); Chloride 104 mmol/L (98-107); Globulin 3.6 g/dL (2.4-3.5); Glucose 105 mg/dL (70-105); Sodium 137 mmol/L (136-145)
== END 2021-03-17 11:28 | disposition home or self-care (01) ==
LOC: ERS 08:30
DX: G43.909 Migraine, unspecified, not intractable, without status migrainosus (principal); R07.9 Chest pain, unspecified; F17.210 Nicotine dependence, cigarettes, uncomplicated; Z79.899 Other long term (current) drug therapy
CPT/HCPCS: 36415; 70450; 71045; 80053; 84484; 85025; 93005; 96365; 96366; 96375; J1200; J1885; J2765; J2930

== ENCOUNTER 2021-03-18 06:03 | Emergency (ER) | payer BC ==
[2021-03-18] MEDS ORDERED: Ketorolac Tromethamine 30 MG/ML VIAL ONE (07:16)
[2021-03-18] MEDS ORDERED: Aspirin 325 MG TAB ONE (07:16)
[2021-03-18] MEDS ORDERED: Aspirin Chewable 81 MG TAB ONE (07:20)
[2021-03-18 07:35] LABS: ALT (SGPT) 20 U/L (8-55); AST (SGOT) 14 U/L (5-34); Albumin 4.6 g/dL (3.5-5.0); Alkaline Phosphatase 113 U/L (40-110); Anion Gap 14 mmol/L (10-20); BUN (Urea Nitrogen) 19 mg/dL (7.0-18.7); Bilirubin, Total 0.4 mg/dL (0.2-1.2); CK (CPK) 59 U/L (29-168); Calc. Creatinine Clearance 0 mL/min (70-130); Calcium 10.1 mg/dL (7.8-10.44); Carbon Dioxide 23 mmol/L (22-29); Chloride 106 mmol/L (98-107); Globulin 3.2 g/dL (2.4-3.5); Glucose 101 mg/dL (70-105); Potassium 4.2 mmol/L (3.5-5.1); Protein, Total 7.8 g/dL (6.0-8.3); Sodium 139 mmol/L (136-145)
== END 2021-03-18 10:34 | disposition home or self-care (01) ==
LOC: ERS 06:03
DX: R07.2 Precordial pain (principal); F41.9 Anxiety disorder, unspecified; E66.01 Morbid (severe) obesity due to excess calories; G43.909 Migraine, unspecified, not intractable, without status migrainosus; F17.210 Nicotine dependence, cigarettes, uncomplicated
CPT/HCPCS: 36415; 71045; 80053; 82550; 83880; 84484; 93005; 96372; J1885

== ENCOUNTER 2021-03-28 14:56 | Emergency (ER) | payer BC ==
[~2021-03-28 14:56] MED LIST changes: +ISOVUE-370 76%-LOCM 1 ML ONE; -Iopamidol-370 76% 500 ML 1 ML ONE
[2021-03-28 15:44] LABS: #Basophils 0.1 thou/uL (0.0-0.2); #Eosinphils 0.5 thou/uL (0.0-0.7); #Lymphocytes 3.1 thou/uL (1.20-3.40); #Monocytes 0.7 thou/uL (0.11-0.59); #Neutrophils 10.4 thou/uL (1.40-6.50); %Basophils 0.5 % (0.0-1.0); %Eosinophils 3.5 % (0.0-10.0); %Lymphocytes 21.1 % (21.0-51.0); %Monocytes 4.6 % (0.0-10.0); %Neutrophils 70.3 % (42.0-75.0); Hemoglobin 14.6 g/dL (12.0-16.0); Mean Corpuscular HGB CONC 35.5 g/dL (32.0-36.0); Mean Corpuscular Hemoglobin 31.8 pg (27.0-31.0); Mean Corpuscular Volume 89.6 fL (78.0-98.0); Mean Platelet Volume 6.2 fL (7.4-10.4); Platelet Count 386 thou/uL (130-400); RBC Distribution Width 12.3 % (11.5-14.5); Red Blood Cell (RBC) Count 4.59 mill/uL (4.20-5.40); White Blood Cell (WBC) Count 14.8 thou/uL (4.8-10.8)
[2021-03-28 16:03] LABS: ALT (SGPT) 25 U/L (8-55); AST (SGOT) 17 U/L (5-34); Albumin 4.1 g/dL (3.5-5.0); Alkaline Phosphatase 108 U/L (40-110); Anion Gap 12 mmol/L (10-20); BUN (Urea Nitrogen) 11 mg/dL (7.0-18.7); Bilirubin, Total 0.2 mg/dL (0.2-1.2); Calc. Creatinine Clearance 0 mL/min (70-130); Calcium 9.8 mg/dL (7.8-10.44); Carbon Dioxide 25 mmol/L (22-29); Chloride 105 mmol/L (98-107); Globulin 3.1 g/dL (2.4-3.5); Glucose 89 mg/dL (70-105); Protein, Total 7.2 g/dL (6.0-8.3); Sodium 138 mmol/L (136-145)
[2021-03-28 16:43] LABS: BHCG - Serum Negative (NEGATIVE); Pregs Control Background? CLEAR/WHITE (CLR/WHITE); Pregs Control Bar Appear? YES (CONTROL BAR)
[2021-03-28 17:01] LABS: Acetaminophen Less than 6.0 mcg/mL (10.0-30.0); Alcohol Less than 10 mg/dL (Less than 10); Salicylate Less than 8.0 mg/dL (15.0-30.0)
[2021-03-28 17:07] LABS: Actual Bicarbonate (HCO3v) 25 mEq/L (22-28); Analyzer IN Cardio ER; Base Excess 0.1 mEq/L (-2.0 to +3.0); Calcium, Ionized (venous) 1.09 mmol/L (1.16-1.32); Chloride (VBG) 103 mmol/L (98-106); Hemoglobin (Hb) 15.1 g/dL (11.7-15.5); Potassium (VBG) 4.18 mmol/L (3.70-5.30); Sodium 136.4 mmol/L (133-146); pH (venous) 7.39 (7.32-7.43)
[2021-03-28 17:29] LABS: Bilirubin Negative (Negative); Blood, Urine Negative (Negative); Clarity Clear (Clear); Glucose, Urine (Dipstick) Normal (Negative); Ketone, Urine Negative (Negative); Leukocyte Negative Leu/uL (Negative); Nitrite Negative (Negative); Protein, Urine (Dipstick) Negative (Neg-Trace); Urobilinogen Normal mg/dL (Less than 2); pH, Urine 6.5 (5.0-9.0)
[2021-03-28 17:36] LABS: Amphetamine Not Detected (NotDetected); Barbiturates Screen Detected (NotDetected); Benzodiazepine Screen Detected (NotDetected); Cocaine Metabolite Screen Not Detected (NotDetected); Methadone Not Detected (NotDetected); Methamphetamine Not Detected (NotDetected); Opiate Screen Detected (NotDetected); Oxycodone Screen Not Detected (NotDetected); Phencyclidine (PCP) Not Detected (NotDetected); THC/Cannabinoid Screen Not Detected (NotDetected); Tricyclic Screen Detected (NotDetected)
== END 2021-03-28 19:47 | disposition home or self-care (01) ==
LOC: ERS 14:56
DX: R56.9 Unspecified convulsions (principal); F13.239 Sedative, hypnotic or anxiolytic dependence with withdrawal, unspecified; G43.909 Migraine, unspecified, not intractable, without status migrainosus; F17.210 Nicotine dependence, cigarettes, uncomplicated
CPT/HCPCS: 36415; 70450; 71045; 71275; 80053; 80306; 80307; 81003; 82805; 83735; 84703; 85025; 85379; 93005; Q9966

== ENCOUNTER 2021-04-05 09:32 | Emergency (ER) | payer BC ==
[2021-04-05 10:07] LABS: #Lymphocytes 1.9 thou/uL (1.20-3.40); #Monocytes 0.6 thou/uL (0.11-0.59); #Neutrophils 12.1 thou/uL (1.40-6.50); %Basophils 0.2 % (0.0-1.0); %Eosinophils 0.1 % (0.0-10.0); %Lymphocytes 12.7 % (21.0-51.0); %Monocytes 4.4 % (0.0-10.0); %Neutrophils 82.6 % (42.0-75.0); Hemoglobin 15.9 g/dL (12.0-16.0); Mean Corpuscular HGB CONC 34.7 g/dL (32.0-36.0); Mean Corpuscular Volume 89.4 fL (78.0-98.0); Mean Platelet Volume 6.3 fL (7.4-10.4); Platelet Count 427 thou/uL (130-400); RBC Distribution Width 12.4 % (11.5-14.5); Red Blood Cell (RBC) Count 5.12 mill/uL (4.20-5.40); White Blood Cell (WBC) Count 14.7 thou/uL (4.8-10.8)
[2021-04-05 10:27] LABS: ALT (SGPT) 27 U/L (8-55); AST (SGOT) 17 U/L (5-34); Albumin 4.7 g/dL (3.5-5.0); Alkaline Phosphatase 113 U/L (40-110); Anion Gap 18 mmol/L (10-20); BUN (Urea Nitrogen) 19 mg/dL (7.0-18.7); Bilirubin, Total 0.5 mg/dL (0.2-1.2); Calc. Creatinine Clearance 0 mL/min (70-130); Calcium 10.4 mg/dL (7.8-10.44); Carbon Dioxide 18 mmol/L (22-29); Chloride 104 mmol/L (98-107); Glucose 99 mg/dL (70-105); Lipase 10 U/L (8-78); Potassium 3.8 mmol/L (3.5-5.1); Protein, Total 8.7 g/dL (6.0-8.3); Sodium 136 mmol/L (136-145)
[2021-04-05] MEDS ORDERED: Ketorolac Tromethamine 30 MG/ML VIAL ONE (10:57)
[2021-04-05] MEDS ORDERED: methylPREDNISolone Sod Succ/PF 125 MG/2 ML VIAL ONE (10:57)
[2021-04-05] MEDS ORDERED: Metoclopramide HCl 10 MG/2 ML VIAL ONE (10:57)
[2021-04-05 15:41] LABS: SARS-CoV-2 PCR by NAA Not Detected (NotDetected)
== END 2021-04-05 12:37 | disposition home or self-care (01) ==
LOC: ERS 09:32
DX: J06.9 Acute upper respiratory infection, unspecified (principal); R51.9 Headache, unspecified; F17.210 Nicotine dependence, cigarettes, uncomplicated; Z20.822 Contact with and (suspected) exposure to COVID-19; Z79.899 Other long term (current) drug therapy
CPT/HCPCS: 36415; 71045; 80053; 83690; 85025; 96365; 96375; J1885; J2765; J2930; U0003; U0005

== ENCOUNTER 2021-04-06 09:24 | Emergency (ER) | payer BC ==
[2021-04-06 10:14] LABS: #Lymphocytes 2.9 thou/uL (1.20-3.40); #Monocytes 1.3 thou/uL (0.11-0.59); #Neutrophils 15.3 thou/uL (1.40-6.50); %Basophils 0.2 % (0.0-1.0); %Eosinophils 0.2 % (0.0-10.0); %Lymphocytes 14.9 % (21.0-51.0); %Monocytes 6.7 % (0.0-10.0); %Neutrophils 78.1 % (42.0-75.0); Hemoglobin 15.5 g/dL (12.0-16.0); Mean Corpuscular HGB CONC 34.7 g/dL (32.0-36.0); Mean Corpuscular Hemoglobin 30.7 pg (27.0-31.0); Mean Corpuscular Volume 88.3 fL (78.0-98.0); Mean Platelet Volume 6.5 fL (7.4-10.4); Platelet Count 474 thou/uL (130-400); RBC Distribution Width 12.4 % (11.5-14.5); Red Blood Cell (RBC) Count 5.06 mill/uL (4.20-5.40); White Blood Cell (WBC) Count 19.6 thou/uL (4.8-10.8)
[2021-04-06 11:11] LABS: ALT (SGPT) 25 U/L (8-55); AST (SGOT) 22 U/L (5-34); Albumin 4.7 g/dL (3.5-5.0); Alkaline Phosphatase 109 U/L (40-110); Anion Gap 19 mmol/L (10-20); BUN (Urea Nitrogen) 23 mg/dL (7.0-18.7); Bilirubin, Total 0.5 mg/dL (0.2-1.2); Calc. Creatinine Clearance 0 mL/min (70-130); Calcium 10.3 mg/dL (7.8-10.44); Carbon Dioxide 15 mmol/L (22-29); Chloride 107 mmol/L (98-107); Globulin 3.7 g/dL (2.4-3.5); Glucose 109 mg/dL (70-105); Potassium 4.3 mmol/L (3.5-5.1); Protein, Total 8.4 g/dL (6.0-8.3); Sodium 137 mmol/L (136-145)
[2021-04-06 11:29] LABS: Bilirubin Negative (Negative); Blood, Urine Negative (Negative); Clarity Turbid (Clear); Glucose, Urine (Dipstick) Normal (Negative); Ketone, Urine 40 mg/dL (Negative); Leukocyte 25 Leu/uL (Negative); Nitrite Negative (Negative); Protein, Urine (Dipstick) 50 mg/dL (Neg-Trace); RBC/HPF 0-3 HPF (0-3); Specific Gravity, Urine 1.028 (1.002-1.036); pH, Urine 6.5 (5.0-9.0)
[2021-04-06 11:32] LABS: Bacteria/HPF 1+ HPF (None Seen)
[2021-04-06 11:33] LABS: Pregnancy Test - Urine (BHCG) Negative (Negative); Pregu Control Background? CLEAR/WHITE (CLR/WHITE); Pregu Control Bar Appear? YES (CONTROL BAR); Specific Gravity 1.028 (1.002-1.036)
[2021-04-06] MEDS ORDERED: Lactated Ringer's 1,000 ML IV SCH (12:30)
[2021-04-06] MEDS ORDERED: levETIRAcetam 500 MG TAB PO SCH (12:30)
== END 2021-04-06 14:02 | disposition home or self-care (01) ==
LOC: ERS 09:24
DX: J18.9 Pneumonia, unspecified organism (principal); E86.0 Dehydration; E87.2 Acidosis; G43.909 Migraine, unspecified, not intractable, without status migrainosus; F17.200 Nicotine dependence, unspecified, uncomplicated
CPT/HCPCS: 36415; 71045; 80053; 81003; 81015; 81025; 85025

== ENCOUNTER 2021-04-15 10:30 | Outpatient (CLI) | payer BC ==
[2021-04-15] MEDS ORDERED: Magnevist 469MG/ML 20 ML VIAL ONE (11:10)
== END 2021-04-15 10:31 | disposition home or self-care (01) ==
LOC: MRI 10:30 → EEG 10:31
PROVIDERS: ATTEND Psychiatry & Neurology Neurology
DX: R56.9 Unspecified convulsions (principal)
CPT/HCPCS: 70553; 95816; 95957; A9579

== ENCOUNTER 2021-05-29 12:47 | Outpatient (CLI) | payer BC | END 2021-05-29 12:48 | disposition home or self-care (01) | LOC: EEG 12:47 | PROVIDERS: ATTEND Psychiatry & Neurology Neurology | DX: G43.701 Chronic migraine without aura, not intractable, with status migrainosus (principal) | CPT/HCPCS: 95816; 95957 ==

== ENCOUNTER 2022-03-30 07:25 | Outpatient (CLI) | payer BC ==
[2022-03-30 08:47] LABS: Bilirubin Neg (Negative); Blood, Urine Negative (Negative); Clarity Clear (Clear); Glucose, Urine (Dipstick) Normal (Negative); Ketone, Urine Negative (Negative); Leukocyte Negative (Negative); Nitrite Negative (Negative); Protein, Urine (Dipstick) Negative (Neg-Trace); Urobilinogen Normal mg/dL (Less than 2)
[2022-03-30 08:54] LABS: Hemoglobin 12.8 g/dL (12.0-15.5); Mean Corpuscular Hemoglobin 30.8 pg (27.0-33.0); Mean Corpuscular Volume 90.4 fl (81.6-98.3); Mean Platelet Volume 9.4 fl (7.4-10.4); Platelet Count 369 10x3/uL (150-450); RBC Distribution Width 12.1 % (11.5-14.5); Red Blood Cell (RBC) Count 4.16 10x6/uL (3.90-5.03); White Blood Cell (WBC) Count 9.7 10x3/uL (3.5-10.5)
[2022-03-30 08:58] LABS: BHCG - Serum Negative (NEGATIVE); Pregs Control Background? CLEAR/WHITE (CLR/WHITE); Pregs Control Bar Appear? YES (CONTROL BAR)
[2022-03-30 08:59] LABS: INR-International Normal Ratio 0.9; PTT 25.6 sec (22.0-33.0); Prothrombin Time 9.9 sec (9.5-12.1)
[2022-03-30 09:01] LABS: Anion Gap 14 mmol/L (10-20); BUN (Urea Nitrogen) 12 mg/dL (7.0-18.7); Calc. Creatinine Clearance 0 mL/min (70-130); Calcium 9.2 mg/dL (7.8-10.44); Carbon Dioxide 23 mmol/L (22-29); Chloride 108 mmol/L (98-107); Estimated GFR 104; Glucose 76 mg/dL (70-105); Potassium 4.1 mmol/L (3.5-5.1); Sodium 141 mmol/L (136-145)
[2022-03-30 09:07] LABS: RBC/HPF 0-3 HPF (0-3); WBC/HPF 0-3 HPF (0-3)
[2022-03-30 09:08] LABS: Bacteria/HPF 2+ HPF (None Seen)
== END 2022-03-30 07:26 | disposition home or self-care (01) ==
LOC: LABBT 07:25
PROVIDERS: ATTEND Urology
DX: Z01.812 Encounter for preprocedural laboratory examination (principal)
CPT/HCPCS: 80048; 81001; 84703; 85027; 85610; 85730; 87086; 93005; 93010

== ENCOUNTER 2022-04-02 10:47 | Day surgery (SDC) | payer BC ==
[2022-04-01 10:26] VITALS: BMI 42.0
[2022-04-02] MEDS ORDERED: Levofloxacin 500 mg/D5W 100 ml Premix Bag ONE (11:45)
[2022-04-02] MEDS ORDERED: Lidocaine 1% MPF 2 ML VIAL ONE (11:45)
[2022-04-02] MEDS ORDERED: Dexamethasone 20 MG/5 ML VIAL ONE (12:54)
[2022-04-02] MEDS ORDERED: Rocuronium Bromide 10 MG/ML (10ML VIAL) ONE (12:54)
[2022-04-02] MEDS ORDERED: NEOSTIGMINE 3 MG/3 ML SYR 3 MG/3 ML SYRINGE ONE (12:54)
[2022-04-02] MEDS ORDERED: PROPOFOL 200 MG/20 ML VIAL ONE (12:54)
[2022-04-02] MEDS ORDERED: Succinylcholine Chloride 100 MG/5 ML SYRINGE FS ONE (12:54)
[2022-04-02] MEDS ORDERED: Glycopyrrolate 0.2 MG/ML 5 ML SYRINGE ONE (12:54)
[2022-04-02] MEDS ORDERED: Ketorolac Tromethamine 30 MG/ML VIAL ONE (12:54)
[2022-04-02] MEDS ORDERED: Lidocaine 1% PF 5 ML VIAL ONE (12:54)
[2022-04-02] MEDS ORDERED: Ondansetron PF 4 MG/2 ML Vial ONE (12:54)
[2022-04-02] MEDS ORDERED: Fentanyl 100 MCG/2 ML VIAL ONE ×3 (12:57→14:59)
[2022-04-02] MEDS ORDERED: Iopamidol 15 ML ONE (13:12)
[2022-04-02] MEDS ORDERED: Phenazopyridine HCl 100 MG TAB ONE (14:23)
[2022-04-02] MEDS ORDERED: Oxybutynin 5 MG TAB ONE (14:24)
[2022-04-02] MEDS ORDERED: HYDROcodone/Acetaminophen 5/325 mg Tablet ONE (15:04)
== END 2022-04-02 16:20 | disposition home or self-care (01) ==
LOC: SDC 10:47
PROVIDERS: ATTEND Urology
PROC: 0TC08ZZ Extirpation of Matter from Right Kidney, Via Natural or Artificial Opening Endoscopic (ICD-10-PCS; principal; 2022-04-02)
PROC: 0TC18ZZ Extirpation of Matter from Left Kidney, Via Natural or Artificial Opening Endoscopic (ICD-10-PCS; principal; 2022-04-02)
PROC: 0T788DZ Dilation of Bilateral Ureters with Intraluminal Device, Via Natural or Artificial Opening Endoscopic (ICD-10-PCS; principal; 2022-04-02)
DX: N20.0 Calculus of kidney (principal); G40.409 Other generalized epilepsy and epileptic syndromes, not intractable, without status epilepticus; G43.701 Chronic migraine without aura, not intractable, with status migrainosus; J45.909 Unspecified asthma, uncomplicated; G47.30 Sleep apnea, unspecified; F17.210 Nicotine dependence, cigarettes, uncomplicated; Z79.899 Other long term (current) drug therapy; Z88.0 Allergy status to penicillin; Z91.040 Latex allergy status
CPT/HCPCS: 71045; 74420; 82365; 88300; C1713; C1769; C2617; J1100; J1885; J1956; J2405; J2704; J3010; Q9967